=== PATIENT | male | born 1995 | race Caucasian/White ===

== ENCOUNTER 2017-07-03 19:34 | Emergency (ER) | payer SELFPAY ==
[~2017-07-03] VITALS: Ht 162.6 cm; Wt 44.9 kg
[~2017-07-03 19:34] MED LIST: CHOL100059 PO; IBUP-1618 PO; MULT-1379 PO; OMEG1CAP35 PO
--- NOTE | 2017-07-03 19:35 | ER Report ---
History and Physical Time Seen By MD: 19:35 HPI/ROS CHIEF COMPLAINT: Custodial clearance HISTORY OF PRESENT ILLNESS: 21-year-old male brought in by police for residential clearance. Patient appears grossly alcohol intoxicated. He voices no complaints. REVIEW OF SYSTEMS: Respiratory: No cough, no dyspnea. Cardiovascular: No chest pain, no palpitations. Gastrointestinal: No vomiting, no abdominal pain. Musculoskeletal: No back pain. Allergies: Coded Allergies: No Known Drug Allergies (Verified , 07/03/17) Home Meds Discontinued Reported Medications Cholecalciferol (Vitamin D3) (VITAMIN D3) 1,000 Unit Capsule, 1000 UNIT PO QDAY , CAPSULE 09/30/16 Multivits,Th W-Fe,Other Min (THERA-M) 1 Each Tablet, 1 EACH PO QDAY 09/30/16 [place]-3/Dha/Epa/Fish Oil (FISH OIL 500 MG SOFTGEL) 1 Each Capsule, 2 EACH PO QDAY, CAPSULE 09/30/16 Reviewed Nurses Notes: Yes Old Medical Records Reviewed: Yes Hx Smoking: No Smoking Status: Never Smoker Exposure to Second Hand Smoke?: No Hx Substance Use Disorder: Yes Hx Alcohol Use: Yes Constitutional Vital Sign - Last 24 Hours 07/03/17 19:36 Temp 97.6 Pulse 95 Resp 20 B/P (MAP) 149/115 Pulse Ox 96 O2 Delivery Room Air Physical Exam General Appearance: The patient is alert, has no immediate need for airway protection and no current signs of toxicity.. Palpation of the head and neck reveal no tenderness or trauma HEENT: Pupils equal and round no injection. Oropharynx without dental trauma, mucous. Membranes are moist Respiratory: Chest is non tender, lungs are clear to auscultation. No chest wall tenderness Cardiac: regular rate and rhythm Gastrointestinal: Abdomen is soft and non tender, no masses, bowel sounds normal. Musculoskeletal: Neck: Neck is supple and non tender. Extremities have full range of motion and are non tender. Skin: No rashes or lesions. DIFFERENTIAL DIAGNOSIS: After history and physical exam differential diagnosis was considered for alcohol intoxication, polysubstance abuse, residential clearance Medical Decision Making ED Course/Re-evaluation ED Course Patient was admitted to an examination room. H&P was done. The differential diagnoses was considered. On clinical examination. Patient has normal vital signs. He has no apparent traumatic injuries. He is medically cleared for residential admission. Decision to Disposition Date: Jul 03, 2017 Decision to Disposition Time: 19:39 Depart Departure Latest Vital Signs Vital Signs Date Time Temp Pulse Resp B/P (MAP) Pulse Ox O2 Delivery O2 Flow Rate FiO2 07/03/17 19:36 97.6 95 20 149/115 96 Room Air Impression: Primary Impression: Alcohol intoxication Additional Impression: Medical clearance for incarceration Condition: Improved Disposition: [facility] TO SENIOR CARE/CORRECTIONAL F Patient Instructions: Abuse of Alcohol (ED) Additional Instructions: Medically cleared for residential admission Problem Qualifiers Primary Impression: Alcohol intoxication Complication of substance-induced condition: uncomplicated Qualified Codes: F10.920 - Alcohol use, unspecified with intoxication, uncomplicated ELLA GONZALEZ DO Jul 03, 2017 19:35
[2017-07-03 19:36] VITALS: BP 149/115
== END 2017-07-03 20:04 ==
LOC: ER 19:36
DX: F10.920 Alcohol use, unspecified with intoxication, uncomplicated (principal)
CPT/HCPCS: 99283